=== PATIENT | male | born 1995 | race Caucasian/White ===

== ENCOUNTER → 2022-06-12 14:52 | Outpatient (BNVA) | payer SELFPAY | PROVIDERS: Visit Provider Nurse Practitioner Family | DX: Z20.828 Contact with and (suspected) exposure to other viral communicable diseases (principal) | CPT/HCPCS: 87400 ==

== ENCOUNTER 2022-06-18 20:21 | Emergency (ER) | payer SELFPAY ==
[2022-06-18] VITALS (23 sets, daily range): BP systolic 111–137; BP diastolic 59–76; PULSE 49–65; RESP 0–19; TEMP 36.6; O2SAT 96–99; BMI 32.2
--- NOTE | 2022-06-18 20:46 | ECG_ITS ---
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 Measurements Intervals [place] Rate: 58 P: 56 TX: 174 QRS: 71 QRSD: 101 T: 57 QT: 388 QTc: 383 Interpretive Statements SINUS BRADYCARDIA No previous ECG available for comparison Electronically Signed On 06-19-2022 10:13:25 [employer] by Delia Hernandez M.D. [email or web address]
--- NOTE | 2022-06-18 20:54 | XRR_ITS ---
PROCEDURE INFORMATION: Exam: XR Chest Exam date and time: 06/18/2022 8:58 PM Age: 26 years old Clinical indication: Cough and shortness of breath and other: Chest pain; Additional info: Epigastric pain TECHNIQUE: Imaging protocol: Radiologic exam of the chest. Views: 1 view. COMPARISON: No relevant prior studies available. FINDINGS: Lungs: Unremarkable. No consolidation. Pleural spaces: Unremarkable. No pleural effusion. No pneumothorax. Heart/Mediastinum: Unremarkable. No cardiomegaly. Bones/joints: Unremarkable. XR/XR chest 1V portable [id number] IMPRESSION: No acute findings.
--- NOTE | 2022-06-18 20:58 | W.ED.ABDPA2 ---
HPI - Abdominal Pain General: Chief Complaint: Abdominal Pain Stated Complaint: dizziness, chest discomfort Time Seen by Provider: 06/18/22 20:42 Source: patient and family Mode of arrival: ambulatory Limitations: no limitations History of Present Illness: This patient presents to the emergency department because he has had some epigastric discomfort and some burning sensation up into his chest from time to time. His spouse who is present also collaborates the history. Should they think it is been present maybe 2 to 3 weeks. He is recently been ill with some vomiting and loose stools attributed to a viral illness that other members of his family have had as well. He denied any chest pain with exertion. He denies any coffee-ground emesis or bloody emesis. There is been no black or tarry stools. He states he is eaten breakfast and lunch today but has not eaten since that time. He has no history of gastroesophageal reflux disease. Denies any chest injuries. He states his cough is been basically nonproductive. His reports he occasionally coughs at night but she has not heard him wheezing or other noisy breathing. He has no personal history of gastroesophageal reflux disease, gallbladder disease etc. He has had no history of issues with food avoidance or food related symptoms in the past. He does use smokeless tobacco. He denies any personal history of reactive airway disease. He is not used any nonsteroidals such as ibuprofen or Aleve and does not drink alcohol. Location: Epigastric Quality: burning Relieving factors: nothing Context: sick contacts Associated Symptoms: Reports diarrhea and vomiting; Denies chills, dysuria, fever(s), hematochezia, hematemesis, melena, nausea and syncope Review of Systems Const: Denies: fever(s) or chills Eyes: Denies: change in vision ENMT: Denies: throat pain, odynophagia, nasal discharge or nasal congestion Card: Denies: palpitations, irregular heart rhythm, syncope, pre-syncope or dyspnea on exertion Resp: Reports: non-productive cough; Denies: wheezing or stridor GI: Reports: vomiting and diarrhea; Denies: nausea, hematemesis, hematochezia or melena : Denies: flank pain, difficulty urinating, dysuria or urinary frequency Musc: Denies: neck pain, back pain, extremity pain or extremity swelling Skin/Breast: Denies: rash or pruritus Neuro: Denies: headache(s), numbness in extremities or weakness in extremities PFSH ED PFSH: Medical History ADHD Surgical History Hx of hernia repair Family History Family/Other Cancer Diabetes Hypertension Social History Smoking and tobacco status: never smoked Second hand smoke exposure: No Alcohol intake: never Caregiver/support person: Yes Lives independently: Yes Household members: spouse Marital status: Current occupational status: employed Current occupation: [employer] History of recent travel: No Current gender identity: Male Physical Exam Narrative: EXAM NARRATIVE: Patient is alert and appears to be in no acute distress. Answers questions in a goal-directed fashion. Const: COMMON NORMALS: no acute distress, patient oriented x3, healthy appearing and alert GENERAL APPEARANCE: cooperative and comfortable HENMT: COMMON NORMALS: normocephalic, Normal nasal mucous membranes and turbinates present, moist oral mucous membranes and oropharynx normal HEAD & SCALP: normocephalic NOSE: Normal nasal mucous membranes and turbinates present Eye: COMMON NORMALS: Equal, round and reactive pupils present, EOMs intact bilaterally, conjunctivae normal and no scleral icterus CONJUNCTIVA: Yes conjunctivae normal PUPIL: Yes Equal, round and reactive pupils present Neck/C-Spine: COMMON NORMALS: full ROM, no lymphadenopathy and supple Chest: COMMONS NORMALS: normal inspection of the chest OTHER: He has tenderness in the anterior chest predominantly in the upper sternal clavicular and sternal costal junctions. It is exacerbated by deep breaths and also abduction of both upper arms against resistance. There is no ecchymosis, subcutaneous emphysema, palpable crepitance. Resp: COMMON NORMALS: normal respiratory effort, No retractions, No use of accessory muscles and clear to auscultation bilaterally AUSCULTATION: clear to auscultation bilaterally Cardio: COMMON NORMALS: regular rate, regular rhythm, No murmurs present (Cardio) and Peripheral pulses 2+ throughout RATE: regular rate RHYTHM: regular rhythm PERIPHERAL PULSES: Peripheral pulses 2+ throughout GI: COMMON NORMALS: Normal to inspection, nondistended, normoactive bowel sounds present and Soft to palpation INSPECTION: No visible herniation PALPATION: Yes Soft to palpation and Yes Tenderness to palpation present (GI) (Minimal tenderness in the epigastric region. There is no tenderness in the) : COMMON NORMALS: Yes no CVA tenderness BLADDER/KIDNEY EXAM: Yes no CVA tenderness Back/Pelvis: COMMON NORMALS: no CVA tenderness, thoracic and lumbar spine normal to inspection, no thoracic nor lumbar tenderness and thoraco-lumbar ROM normal Extremity: COMMON NORMALS: normal to inspection, full ROM, capillary refill normal, no calf tenderness and no pedal edema Neuro: COMMON NORMALS: patient oriented x3, moves all extremities and no focal motor deficits SENSORIUM/ORIENTATION: Yes alert Psych: COMMON NORMALS: mental status grossly normal Skin: COMMON NORMALS: no rashes or lesions noted, turgor normal and no jaundice GENERAL SKIN EXAM: no rashes or lesions noted and turgor normal Course Reevaluation(s): Reevaluation #1: Patient remained stable without any new or focal findings on repeat examination. Abdomen is soft no guarding rebound or evidence of peritoneal signs. We reviewed all his ancillary studies and they are reassuring nature. Discussed likely etiology of his current symptoms, plan care and return precautions. We will have him continue an H2 jolly for the next 2 weeks as I think he is probably getting some gastroesophageal reflux. He also has some chest wall pain likely related to his recent cough. No evidence of pneumonia, pancreatitis, other worrisome issues at this time. We also reviewed the need to consider stopping his smokeless tobacco as this may be contributing factor to his symptoms as well. Time: 22:13 Vital Signs: Vital signs: Vital Signs Temperature 97.8 F 06/18/22 20:25 Pulse Rate 63 06/18/22 20:25 Respiratory Rate 18 06/18/22 20:25 Blood Pressure 115/69 06/18/22 20:25 Pulse Oximetry 99 06/18/22 20:25 Oxygen Delivery Me thod 06/18/22 20:25 MDM - Abdominal Pain Medical Decision Making Patient presented to our emergency department after approximately 2 to 3 weeks history of burning discomfort in epigastric and retrosternal region. Also has had a recent viral illness likely influenza per history and review of chart. No history of hematemesis, coffee-ground emesis, dark tarry stools, blood in stools etc. No history of cardiovascular symptoms such as palpitations, dyspnea with exertion etc. His work-up was reassuring his clinical exam exhibited chest wall tenderness in the right anterior chest wall that reproduces symptoms as well as some epigastric tenderness of mild nature that was not suggestive of any kind of peritoneal signs or other intra-abdominal process clinically. His laboratories were reassuring to include EKG chest x-ray in usual chemistries and CBC. He seemed improved and clinically stable and was suitable for outpatient management with return precautions. Medical Records I reviewed the patient's medical records. Lab Data I reviewed the patient's lab results. 06/18/22 21:00 06/18/22 21:00 Labs/Radiology: Radiology Impressions Chest X-Ray 06/18/22:54 IMPRESSION: No acute findings. Laboratory Results WBC 8.3 10^3/uL (4.0-10.0) 06/18/22 21:00 RBC 4.88 10^6/uL (4.1-5.3) 06/18/22 21:00 Hgb 15.2 g/dL (11.7-16.6) 06/18/22 21:00 Hct 44.0 % (42.0-52.0) 06/18/22 21:00 MCV 90.2 fl (80-94) 06/18/22 21:00 MCH 31.1 pg (28.0-34.0) 06/18/22 21:00 MCHC 34.5 g/dL (30.0-36.0) 06/18/22 21:00 RDW 12.1 % (12.1-15.1) 06/18/22 21:00 Plt Count 271 10^3/cmm (130-400) 06/18/22 21:00 MPV 10.8 fL (7.4-10.4) H 06/18/22 21:00 Neut % (Auto) 68.0 % 06/18/22 21:00 Lymph % (Auto) 24.2 % 06/18/22 21:00 [place] % (Auto) 4.7 % 06/18/22 21:00 Eos % (Auto) 2.8 % 06/18/22 21:00 Baso % (Auto) 0.1 % 06/18/22 21:00 Neut # (Auto) 5.66 10^3/uL (1.8-7.7) 06/18/22 21:00 Lymph # (Auto) 2.0 10^3/uL (0.8-4.8) 06/18/22 21:00 [place] # (Auto) 0.4 10^3/uL (0.2-0.9) 06/18/22 21:00 Eos # (Auto) 0.2 10^3/uL (0.0-0.8) 06/18/22 21:00 Baso # (Auto) 0.0 10^3/uL (0.0-0.1) 06/18/22 21:00 Nucleated RBC % (auto) 0 % 06/18/22 21:00 Nucleated RBCs # 0.0 /100WBC 06/18/22 21:00 Sodium 140 mmol/L (136-145) 06/18/22 21:00 Potassium 3.8 mmol/L (3.5-5.1) 06/18/22 21:00 Chloride 104 mmol/L (98-107) 06/18/22 21:00 Carbon Dioxide 25 mmol/L (22-29) 06/18/22 21:00 Anion Gap 14.8 (5-19) 06/18/22 21:00 BUN 7 mg/dL (6-20) 06/18/22 21:00 Creatinine 0.6 mg/dL (0.7-1.2) L 06/18/22 21:00 GFR Calculation 162.9 mL/min (90-130) H 06/18/22 21:00 Glucose 90 mg/dL (65-115) 06/18/22 21:00 Calculated Osmolality 288 mOsm/kg (285-295) 06/18/22 21:00 Calcium 9.5 mg/dL (8.5-10.5) 06/18/22 21:00 Total Bilirubin 0.5 mg/dL (0.15-1.2) 06/18/22 21:00 AST 22 U/L (0-40) 06/18/22 21:00 ALT 31 U/L (0-41) 06/18/22 21:00 Alkaline Phosphatase 63 U/L (40-130) 06/18/22 21:00 Total Protein 7.6 g/dL (6.6-8.7) 06/18/22 21:00 Albumin 4.8 g/dL (3.5-5.2) 06/18/22 21:00 Globulin 2.8 g/dL (1.3-4.6) 06/18/22 21:00 Lipase 22 U/L (13-60) 06/18/22 21:00 EKG Data EKG 1: I personally reviewed and interpreted this EKG as follows: Interpretation: Contemporaneous review of resting EKG reveals a ventricular rate of 58 bpm. Normal PA interval normal QRS duration; QTC is 385 ms. Normal axis. No acute ST-T wave changes noted. Discharge Plan Discharge Patient Disposition: Home Clinical Impression: Gastro-esophageal reflux, Anterior chest wall pain Condition: Stable Prescriptions: New Pepcid 40 mg tablet 40 mg PO DAILY Qty: 14 0RF No Action oseltamivir [Tamiflu] 75 mg capsule 75 mg PO BID 5 Days Qty: 10 0RF ondansetron HCl 4 mg tablet 4 mg PO QID PRN (Reason: nausea and vomiting) Qty: 20 0RF Discharge Orders: Discharge ED (Routine); Ordered 06/18/22 Ordered By: Win Santillan Referrals: Archana Nogueira MD [Primary Care Provider] - Discharge Diet: Usual diet Discharge Activity: Increase activity as tolerated Patient Instructions: Opioid Safety, Pain Management Activity Restrictions/Additional Instructions: Avoid smokeless tobacco and any other irritants to your stomach. Take the medication prescribed once daily for the next 2 weeks to reduce acid production in your stomach and allow it to heal. You may use Tylenol and the usual doses of 650 mg every 6 hours for any chest wall pain. If you develop sustained pain, fever, vomiting blood, worsening symptoms of any sort return to this emergency department. Coding Level of Care Code ED Associate Professor Of [employer] Science for Marixa Fwd Exam Comprehensive
[2022-06-18 21:08] LABS: Basophils % 0.1 %; Eosinophils # 0.2 10^3/uL (0.0-0.8); Eosinophils % 2.8 %; Hemoglobin 15.2 g/dL (11.7-16.6); Lymphocytes % 24.2 %; Mean Corpuscular HGB Conc 34.5 g/dL (30.0-36.0); Mean Corpuscular Hemoglobin 31.1 pg (28.0-34.0); Mean Corpuscular Volume 90.2 fl (80-94); Mean Platelet Volume 10.8 fL (7.4-10.4); Monocytes # 0.4 10^3/uL (0.2-0.9); Monocytes % 4.7 %; Neutrophils # 5.66 10^3/uL (1.8-7.7); Nucleated Red Blood Cells % 0 %; Platelet Count 271 10^3/cmm (130-400); Red Blood Count 4.88 10^6/uL (4.1-5.3); Red Cell Distribution Width 12.1 % (12.1-15.1); White Blood Count 8.3 10^3/uL (4.0-10.0)
[2022-06-18] MEDS: famotidine 20 mg/2 mL INJ 40 MG IVP (21:13)
[2022-06-18 21:29] LABS: Alanine Aminotransferase 31 U/L (0-41); Albumin Level 4.8 g/dL (3.5-5.2); Alkaline Phosphatase 63 U/L (40-130); Anion Gap 14.8 (5-19); Aspartate Amino Transferase 22 U/L (0-40); Blood Urea Nitrogen 7 mg/dL (6-20); Calcium 9.5 mg/dL (8.5-10.5); Carbon Dioxide 25 mmol/L (22-29); Chloride 104 mmol/L (98-107); Globulin 2.8 g/dL (1.3-4.6); Glomerular Filtration Rate 162.9 mL/min (90-130); Glucose 90 mg/dL (65-115); Lipase 22 U/L (13-60); Osmolality Calculated 288 mOsm/kg (285-295); Potassium 3.8 mmol/L (3.5-5.1); Sodium 140 mmol/L (136-145); Total Bilirubin 0.5 mg/dL (0.15-1.2); Total Protein 7.6 g/dL (6.6-8.7)
== END 2022-06-18 23:12 | disposition home or self-care (01) ==
PROVIDERS: Emergency Provider Emergency Medicine; PCP Family Medicine
DX: K21.9 Gastro-esophageal reflux disease without esophagitis (principal); R07.89 Other chest pain
CPT/HCPCS: 71045; 80053; 83690; 85025; 93005; 96374; 99284; J3490

== ENCOUNTER → 2022-08-01 16:39 | Outpatient (BNVA) | payer SELFPAY | PROVIDERS: PCP Family Medicine; Visit Provider Nurse Practitioner Family | DX: R19.7 Diarrhea, unspecified (principal); K21.9 Gastro-esophageal reflux disease without esophagitis; R10.9 Unspecified abdominal pain | CPT/HCPCS: 80053; 82607; 83735; 84443; 85025 ==

== ENCOUNTER → 2022-08-02 09:53 | Outpatient (BNVA) | payer SELFPAY | PROVIDERS: PCP Family Medicine; Visit Provider Nurse Practitioner Family | DX: R19.7 Diarrhea, unspecified (principal) | CPT/HCPCS: 83630; 87338; 87493; 87506 ==

== ENCOUNTER 2022-10-07 10:55 | Outpatient (CLI) | payer SELFPAY ==
--- NOTE | 2022-10-07 11:15 | US_ITS ---
WS: [id number] RIGHT UPPER QUADRANT ULTRASOUND HISTORY: R10.11 - Right upper quadrant pain COMPARISON: None available. Liver: 15.6 cm in length. Normal size liver and echogenicity. No bile duct dilatation or mass. Portal Vein: Normal hepatopetal flow with monophasic waveform. Gallbladder: Normally distended gallbladder with no stones or wall thickening. CBD: 0.3 cm Pancreas: Obscured by bowel gas. Right kidney: 11.3 cm in length. Normal size and echogenicity. No hydronephrosis or mass. Aorta and IVC: Unremarkable abdominal aorta and IVC. No ascites. US/US gall bladder [id number] IMPRESSION: Normal RIGHT upper quadrant ultrasound.
== END 2022-10-07 10:56 | disposition home or self-care (01) ==
PROVIDERS: PCP Family Medicine; Visit Provider Nurse Practitioner Family
DX: R10.11 Right upper quadrant pain (principal)
CPT/HCPCS: 76705